=== PATIENT | female | born 1995 ===

== ENCOUNTER 2024-03-02 08:45 | Inpatient (IN) | payer OTHER ==
[~2024-03-02] VITALS: Ht 162.6 cm; Wt 2.3 kg
[2024-03-02] MEDS ORDERED: OBSTETRIX EC C1 EAC1 PO (10:48)
[2024-03-02] MEDS ORDERED: CHILDREN'S ASPI81 MG PO (10:49)
[2024-03-02] MEDS ORDERED: IRON236 MG PO (10:49)
[2024-03-02 11:02] LABS: HEMOGLOBIN 13.1 g/dL (12.0-15.00); MEAN CELL VOLUME 96.3 fL (80.00-100.00); MEAN CORPUSCULAR HGB CONC 35.3 g/dl (32.0-36.0); PLATELET COUNT 245 K/uL (150-450); RED BLOOD COUNT 3.84 M/uL (4.00-6.00); RED CELL DISTRIBUTION WIDTH 14.5 % (11.5-14.5)
[2024-03-02 11:14] LABS: URINE APPEARANCE Clear; URINE BILIRRUBIN Negative (NEGATIVE); URINE BLOOD Negative; URINE COLOR Yellow; URINE GLUCOSE Negative (NEGATIVE); URINE KETONE Negative (NEGATIVE); URINE LEUKOCYTE Small; URINE NITRATE Negative; URINE PROTEIN Negative (NEGATIVE); URINE UROBILINOGEN 0.2 E.U./dl
[2024-03-02 11:18] LABS: URINE BACTERIA 881.8 uL (0.0-1933); URINE EPITHELIAL CELLS 31.9 uL (0.0-38.8); URINE RBC 6.1 uL (0.0-20.8); URINE WBC 77.4 uL (0.0-23.2)
[2024-03-02 11:32] LABS: INR < 0.93; PARTIAL THROMBOPLASTIN TIME 28.5 SECONDS (22.0-34.0); PROTHROMBIN TIME 10.2 SECONDS (9.0-11.5)
[2024-03-02 11:38] LABS: ALBUMIN 2.7 gm/dL (3.4-5.0); BILIRUBIN TOTAL 0.57 mg/dL (0.3-1.2); CALCIUM 8.7 mg/dL (8.5-10.1); CREATININE SERUM 0.63 mg/dL (0.55-1.02); GFR 110.95; GLOBULINA 3.3 G/DL (2.4-3.5); POTASSIUM 3.93 mEq/L (3.5-5.1)
[2024-03-07 09:17] VITALS: BP 128/77
[2024-03-07] MEDS ORDERED: RINGERS SOLUTION,LACTATED 1,000 ML IV SCH (10:30)
[2024-03-07 12:17] VITALS: BP 104/65
[2024-03-07 15:48] VITALS: BP 121/74
[2024-03-07] MEDS ORDERED: OXYTOCIN 10 UNITS/ML VIAL ONE (16:40)
[2024-03-07] MEDS ORDERED: ERYTHROMYCIN BASE OPHT 1GM EACH TUBE OP ONE ×2 (16:41→17:30)
[2024-03-07] MEDS ORDERED: CEFAZOLIN SODIUM 1,000 MG VIAL ONE (17:28)
[2024-03-07] MEDS ORDERED: CEFAZOLIN SODIUM 1,000 MG VIAL IV ONE (17:30)
[2024-03-07] MEDS ORDERED: OXYTOCIN 10 UNITS/ML VIAL IV ONE (17:30)
[2024-03-07] MEDS ORDERED: MEPERIDINE HCL/PF 50 MG/ML VIAL IV SCH (19:30)
[2024-03-07] MEDS ORDERED: KETOROLAC TROMETHAMINE 60 MG VIAL IM ONE (19:30)
[2024-03-07] MEDS ORDERED: MORPHINE SULFATE 4 MG/ML VIAL IV ONE ×2 (20:20→20:50)
[2024-03-07] MEDS ORDERED: PROMETHAZINE HCL 25 MG/ML AMPUL IV SCH (21:00)
[2024-03-07 23:16] LABS: HEMOGLOBIN 12.4 g/dL (12.0-15.00); MEAN CELL VOLUME 98.7 fL (80.00-100.00); MEAN CORPUSCULAR HEMOGLOBIN 33.3 pg (27.00-32.0); MEAN CORPUSCULAR HGB CONC 33.7 g/dl (32.0-36.0); PLATELET COUNT 219 K/uL (150-450); RED BLOOD COUNT 3.74 M/uL (4.00-6.00); RED CELL DISTRIBUTION WIDTH 14.1 % (11.5-14.5)
[2024-03-08 03:03] VITALS: BP 124/78
[2024-03-08 08:00] VITALS: BP 124/86
[2024-03-08] MEDS ORDERED: OxyCODONE HCL/APAP UD (PERCOCET) PO SCH (08:00)
[2024-03-08] MEDS ORDERED: SIMETHICONE 125 MG CAPSULE PO SCH (09:00)
[2024-03-08] MEDS ORDERED: DOCUSATE CALCIUM 240 MG CAPSULE PO SCH (09:00)
[2024-03-08 18:58] VITALS: BP 129/86
[2024-03-09] VITALS: BP 123/77
[2024-03-09 08:43] VITALS: BP 114/76
[2024-03-09] MEDS ORDERED: BISACODYL 10 MG/SUPP.RECT SUPP.RECT RECTAL NR (14:30)
[2024-03-09 16:00] VITALS: BP 121/83
== END 2024-03-09 15:43 | disposition home or self-care (01) | DRG 785 ==
LOC: OB/GYN 03-07 07:00 → LDR 03-07 09:26 → OB/GYN 03-07 09:26
PROVIDERS: ADMIT Specialist; ATTEND Specialist
PROC: 0UB70ZZ Excision of Bilateral Fallopian Tubes, Open Approach (ICD-10-PCS; 2024-03-07)
PROC: 4A1HXCZ Monitoring of Products of Conception, Cardiac Rate, External Approach (ICD-10-PCS; 2024-03-07)
PROC: 10D00Z1 Extraction of Products of Conception, Low, Open Approach (ICD-10-PCS; principal; 2024-03-07 07:00)
DX: O32.1XX1 Maternal care for breech presentation, fetus 1 (principal); O30.043 Twin pregnancy, dichorionic/diamniotic, third trimester; Z3A.37 37 weeks gestation of pregnancy; Z37.2 Twins, both liveborn; Z30.2 Encounter for sterilization; Z20.822 Contact with and (suspected) exposure to COVID-19